=== PATIENT | male | born 1965 | race Hispanic/Latino ===

== ENCOUNTER 2020-12-23 12:25 | Observation (INO) | payer BC ==
[2020-12-23] MEDS ORDERED: CEFTRIAXONE 1 GM/NS 50 ML 1 GM/50 ML BAG IV SCH (12:56)
[2020-12-23] MEDS ORDERED: ONDANSETRON 4 MG/2 ML VIAL IV PRN (12:57)
[2020-12-23] MEDS ORDERED: HYDROCODONE/APAP 5/325 MG TAB PO PRN (12:58)
[2020-12-23] MEDS ORDERED: ACETAMINOPHEN 500 MG TAB PO PRN (12:59)
[2020-12-23] MEDS ORDERED: ZOLPIDEM TARTRATE 10 MG TABLET PO PRN (13:01)
[2020-12-23 13:47] LABS: Absolute Lymphocytes (CBC) 1.2 K/uL (0.7-4.9); Basophils % 0.6 % (0-1.3); Hematocrit 42.5 % (39.6-49.0); Lymphocytes % 12.3 % (15.3-44.8); MPV 7.9 fL (7.6-11.3); RBC Red Blood Cell Count 4.72 M/uL (4.33-5.43)
[2020-12-23] MEDS ORDERED: CEFTRIAXONE/SWI 1gm 1 GM/10 ML SYR IV SCH (14:00)
[2020-12-23 14:02] LABS: Potassium 4.1 mmol/L (3.5-5.1)
[2020-12-23] MEDS: Levofloxacin 750mg IV 750 MG/150 ML BAG IV SCH (14:41)
[2020-12-23 15:03] VITALS: BMI 32.5
[2020-12-23 15:36] LABS: Urine Appearance CLEAR (Clear); Urine Bilirubin NEGATIVE (Negative); Urine Blood NEGATIVE (Negative); Urine Color YELLOW (Yellow); Urine Glucose NEGATIVE (Negative); Urine Protein NEGATIVE (Negative); Urine Specific Gravity 1.025 (1.005-1.030); Urine pH 6.5 (5.0-7.0)
--- NOTE | 2020-12-23 15:40 | HP ---
Date of Admission: 12/23/2020 Entrance Complaint: Painful testicle. History Of Present Illness: The patient dates his illness back approximately 4 days and over the weekend, he has had a sudden onset of chills, fever and felt there was some discomfort and swelling in his right testicle. The patient has had similar episode in the past. He waited until the next m orning, brought in a urine specimen, and diagnosis of acute orchitis was made. He was given same ant ibiotics and Bactrim that he responded to twice in the past 2 years to somewhat similar symptoms as w ell as injection of cephalosporin. Over the next 24 hours, he felt somewhat better. No further chil ls or fever; however, the pain in the past 24 hours and the swelling became worse despite being on th e antibiotics. Ultrasound was done. There was no evidence of any abscess formation. With the persi stence of the symptoms and the obvious increase in size, it was felt the IV antibiotics were indicate d. The patient has been in good general health. He stated most of his problems started shortly after he had a TURP approximately 2 years ago when he developed his first episode of orchitis and was placed on Bactrim with good response. A couple of months later, he had another episode, at which time, swel ling is much worse. Once again, he responded to the antibiotics. Therefore, the choice of Bactrim w as made in this episode. Other than this, there have been no major medical problems. Social History: Nonsmoker. Family History: Noncontributory. Physical Examination: General: The patient is a well-built, middle-aged male, obvious discomfort, especially when he walks . Vital Signs: Stable vital signs. Head and Neck: Normocephalic. Pupils are equal and reactive to light and accommodation. Fundi nega tive. Trachea midline. Thyroid not palpable. ENT: Negative. Chest: Clear to P and A. Cardiovascular: PMI midclavicular line. Heart sounds normal. Peripheral pulses are present and equal bilaterally. Abdomen: No organomegaly. Bowel sounds present. Extremities: Good tone and movement bilaterally. Reflexes physiologic. Testicles: The left testicle has normal size, nontender. Right testicle, marked tenderness througho ut and size of the testicle now encompasses the entire sac. There is no erythema noted with a slight amount on earlier examinations. Rectal: Deferred. Impression: Acute orchitis and epididymitis. Plan: The patient will be admitted, placed on IV antibiotics. Urology consultation will also be obt ained. HR/MODL Voice ID: [id number]
[2020-12-23 16:13] LABS: Urine Bacteria <20 /HPF (NONE SEEN); Urine RBC <5 /HPF (NONE SEEN)
[2020-12-24 06:01] LABS: Absolute Lymphocytes (CBC) 1.7 K/uL (0.7-4.9); Hematocrit 40.1 % (39.6-49.0); Lymphocytes % 18.7 % (15.3-44.8); MPV 7.5 fL (7.6-11.3); RBC Red Blood Cell Count 4.46 M/uL (4.33-5.43)
[2020-12-24 06:11] LABS: Potassium 4.1 mmol/L (3.5-5.1)
[2020-12-24 11:35] VITALS: BP 131/79; TEMP 97.8
[2020-12-24] MEDS: Levofloxacin 750mg IV 750 MG/150 ML BAG IV SCH (13:00)
--- NOTE | 2020-12-24 18:41 | PN ---
Date of Progress Note: 12/24/2020 The patient has stated that his frequency in his urination has improved significantly, although clini yara there has not been much change in the size of the right testicle seen by Urology. Continue the antibiotics and follow up within a couple of weeks. His white count has dropped into the normal ran ge. We will discharge after the second dose of Levaquin IV this afternoon to continue on Levaquin p. o. x10 days. We will see him in 1 week. Symptomatic treatment was also prescribed. HR/MODL Voice ID: [id number] Report ID: [id number]
== END 2020-12-24 15:19 | disposition home or self-care (01) ==
LOC: ER 12:25 → ERHOLD 12:30 → 2ND 13:52
PROVIDERS: ADMIT Family Medicine; ATTEND Family Medicine
DX: N45.3 Epididymo-orchitis (principal)
CPT/HCPCS: 87088; 85025 ×2; 81001; 87086; 80048 ×2; 36415; J0696; G0378